=== PATIENT | female | born 1950 | race Caucasian/White ===

== ENCOUNTER 2023-12-29 11:50 | Outpatient (CLI) | payer MEDICARE | END 2023-12-29 11:51 | disposition home or self-care (01) | LOC: RAD 11:50 | PROVIDERS: ATTEND Internal Medicine | DX: R06.00 Dyspnea, unspecified (principal); S22.009A Unspecified fracture of unspecified thoracic vertebra, initial encounter for closed fracture; M40.294 Other kyphosis, thoracic region | CPT/HCPCS: 71046 ==